=== PATIENT | male | born 1995 | race African-American/Black ===

== ENCOUNTER 2018-01-29 01:27 | Emergency (ER) | payer OTHER ==
[~2018-01-29] VITALS: Ht 180.3 cm; Wt 77.1 kg
[2018-01-29 01:32] VITALS: BP 131/88
== END 2018-01-29 02:53 | disposition home or self-care (01) ==
LOC: ER 01:30
DX: S00.11XA Contusion of right eyelid and periocular area, initial encounter (principal); Y04.2XXA Assault by strike against or bumped into by another person, initial encounter; Y93.67 Activity, basketball; Y92.89 Other specified places as the place of occurrence of the external cause; Y99.8 Other external cause status
CPT/HCPCS: 70486-TC; A4606; Z7610